=== PATIENT | female | born 1950 | race Two or more races ===

== ENCOUNTER → 2024-11-26 | Emergency (ER) | payer OTHER ==
[~2024-11-26] VITALS: Ht 167.6 cm; Wt 78.5 kg
[~2024-11-26] MED LIST: AVAPRO300 MG; CARVEDILOL3.125 M1; CEFTRIAXONE SODIUM 1,000 MG VIAL IV STA; CEFTRIAXONE SODIUM 1,000 MG VIAL ONE; LANTUS SOL100 UNIT/1; MOUNJARO2.5 MG/0.5; NOVOLOG100 UNIT/1
[2024-11-26 18:05] LABS: BASO % 0.5 % (0.1-1.2); EOS # 0.01 (0.04-0.54); EOS % 0.1 % (0.7-7.0); HEMATOCRIT 34.2 % (34.1-44.9); HEMOGLOBIN 11.4 g/dL (11.2-15.7); LYMPH # 1.82 (1.18-3.74); LYMPH % 10.1 % (19.3-53.1); MONO # 1.19 (0.24-0.82); MONO % 6.6 % (4.7-12.5); NEUT # 14.83 (1.56-6.13); NEUT % 82.1 % (34.0-71.1); PLATELET COUNT 215 K/uL (163-369); RED BLOOD COUNT 4.07 M/uL (3.93-5.22); RED CELL DISTRIBUTION WIDTH 13.4 % (11.6-14.4)
[2024-11-26 18:56] LABS: COVID-19 AG NEGATIVE (NEGATIVE); INFLUENZA A AG NEGATIVE (NEGATIVE); INFLUENZA B AG NEGATIVE (NEGATIVE)
[2024-11-26 20:15] LABS: PH,URINE 5.5 (5.0-8.0); URINE APPEARANCE Cloudy; URINE BILIRRUBIN Negative (NEGATIVE); URINE BLOOD Negative; URINE COLOR Yellow; URINE GLUCOSE Negative (NEGATIVE); URINE KETONE Negative (NEGATIVE); URINE LEUKOCYTE Small; URINE NITRATE Positive; URINE UROBILINOGEN 0.2 E.U./dl
[2024-11-26 20:18] LABS: ALBUMIN 3.7 gm/dL (3.4-5.0); BILIRUBIN TOTAL 0.33 mg/dL (0.3-1.2); GFR 9.76; GLOBULINA 4.2 G/DL (2.4-3.5); POTASSIUM 4.12 mEq/L (3.5-5.1); TOTAL PROTEIN 7.9 gm/dL (6.4-8.2)
[2024-11-26 20:19] LABS: URINE EPITHELIAL CELLS 60.1 uL (0.0-38.8); URINE RBC 7.5 uL (0.0-20.8); URINE WBC 158.7 uL (0.0-23.2)
[2024-11-26 20:35] LABS: URINE BACTERIA > 9821.5 uL (0.0-1933); URINE CAST 1.17 uL (0.0-1.40); URINE PROTEIN 300 (NEGATIVE)
[2024-11-26 20:37] LABS: CREATININE SERUM 4.44 mg/dL (0.55-1.02)
[2024-11-26 20:54] LABS: TYPE CELLS SQUAMOUS; URINE MUCUS SCANT
== END | disposition home or self-care (01) ==
LOC: ER 13:32
PROVIDERS: General Practice
DX: R53.1 Weakness (principal); J00 Acute nasopharyngitis [common cold]; Z20.822 Contact with and (suspected) exposure to COVID-19